=== PATIENT | male | born 1955 | race Caucasian/White ===

== ENCOUNTER 2019-01-05 08:18 | Day surgery (SDC) | payer OTHER ==
[~2019-01-05] VITALS: Ht 182.9 cm; Wt 83.9 kg
[~2019-01-05 08:18] MED LIST: ACETAMINOPHEN 325 MG TAB PO PRN; BALANCED SALT IRRIGATION SOLUTION 500ML BAG (FOR OR EYE MACHINE) As Ordered ONE; CEFUROXIME 1MG/0.1ML INTRACAMERAL INJ As Ordered ONE; CYCLOPENTOLATE 2% OPHTH SOLN 2ML BTL OS ONE; HEALON DUET PRO(HEALON 10MG/ML 0.55ML & HEALON ENDOCOAT 30MG/ML 0.85ML) As Ordered ONE; LIDOCAINE 1% SDV 5 ML VIAL As Ordered ONE; LIDOCAINE 3.5 % 1ML OPHTH TOPICAL GEL OU ONE; MOBI4TAB PO; OFLOXACIN 0.3 % (OCUFLOX) OPTH SOL 5ML OS ONE; PHENYLEPHRINE 2.5% OPHTH SOL 2ML OS ONE; PHENYLEPHRINE HCL 10 % OPHTH. SOL 5ML OS PRN; POVIDONE-IODINE 5% OPHTH PREP SOL 30ML As Ordered ONE; PRED5TA PO; PROPARACAINE 0.5% OPHTH SOL 15ML OS PRN; SLF 3 ML SYR IV PRN; SLF 3 ML SYR IV SCH; TROPICAMIDE 1% OPHTH SOLN 2ML OS ONE
[2019-01-05] MEDS ORDERED: MIDAZOLAM INJ 2 MG/2 ML VIAL (J2250) As Ordered ONE (09:48)
[2019-01-05] MEDS ORDERED: fentaNYL 100 MCG/2 ML INJECTION (J3010) As Ordered ONE (09:48)
[2019-01-05] MEDS ORDERED: TRYPAN BLUE 0.06 % 2.25 ML OPHTH SYR (VISIONBLUE) As Ordered ONE (11:11)
[2019-01-05] MEDS ORDERED: HEALON DUET PRO(HEALON 10MG/ML 0.55ML & HEALON ENDOCOAT 30MG/ML 0.85ML) As Ordered ONE (11:21)
[2019-01-05] MEDS ORDERED: ACETYLCHOLINE OPHTH SOLN 1% 2ML (MIOCHOL-E) As Ordered ONE (11:31)
[2019-01-05] MEDS ORDERED: TOBRADEX OPHTH OINT 3.5 GM As Ordered ONE (11:38)
[2019-01-05] MEDS ORDERED: ONDANSETRON 4MG/2ML VIAL (J2405) IV PRN (12:00)
[2019-01-05] MEDS ORDERED: TRIMETHOBENZAMIDE 300 MG CAP PO PRN (12:15)
[2019-01-05] MEDS ORDERED: KETOROLAC 0.5% OPHTH SOLN OS ONE (12:15)
[2019-01-05] MEDS ORDERED: AcetaZOLAMIDE 500 MG ER CAP PO ONE (12:15)
[2019-01-05 12:20] VITALS: BP 120/56
--- NOTE | 2019-01-06 08:58 | RO ---
DATE OF PROCEDURE: 01/05/2019 PREPROCEDURE DIAGNOSIS: Extremely dense nuclear cataract, left eye. POSTPROCEDURE DIAGNOSIS: Extremely dense nuclear cataract, left eye. PROCEDURE: Phacoemulsification without intraocular lens implantation. SURGEON: Dr. Christine Driscoll. FABRICATION TECHNICIAN: ANESTHESIA: Topical with sedation. DESCRIPTION OF PROCEDURE: The patient was prepped and draped in the usual fashion. A lid speculum was placed. The eye was fixated. A stab incision was made into the anterior chamber. 1% nonpreserved lidocaine was instilled, and viscoelastic was instilled. It was determined that the lens was extremely dens and we were not able to visualize the capsule well. The capsule was stained with vision blue and then fresh Healon was instilled. A Cystotome was used to begin a capsulorrhexis. Capsulorrhexis was carried out in circular fashion with capsulorrhexis forceps. Lens was hydrodissected. It was extremely dense lens. Phacoemulsification was begun and we had to increase the power to almost 90% on the dense setting to be able to emulsify the lens. The lens was finally, totally removed with the phacoemulsification. However, the posterior capsule had a rent in it. At this point, there is some damage to the iris from the phacoemulsification. Anterior vitrectomy was done and then Miochol was instilled. It was elected to wait to put an implant in. We will either glue or sew in an intraocular lens at a later date. One suture was placed in the wound. Cefuroxime was instilled and there was no vitreous at the wound at this point. TobraDex ointment was applied and patch and shield were placed. Patient tolerated procedure well and went to recovery room in stable condition.
== END 2019-01-05 12:35 | disposition home or self-care (01) ==
LOC: M SDC 08:18
PROVIDERS: ATTEND Ophthalmology
DX: H25.12 Age-related nuclear cataract, left eye (principal); M35.3 Polymyalgia rheumatica; Z79.52 Long term (current) use of systemic steroids
CPT/HCPCS: 66984; 92015; J2250; J3010

== ENCOUNTER 2019-05-16 07:38 | Day surgery (SDC) | payer OTHER ==
[~2019-05-16] VITALS: Ht 182.9 cm; Wt 85.2 kg
[~2019-05-16 07:38] MED LIST changes: -CEFUROXIME 1MG/0.1ML INTRACAMERAL INJ As Ordered ONE; +MIDAZOLAM INJ 2 MG/2 ML VIAL (J2250) As Ordered ONE; -SLF 3 ML SYR IV PRN; -SLF 3 ML SYR IV SCH; +fentaNYL 100 MCG/2 ML INJECTION (J3010) As Ordered ONE
[2019-05-16] MEDS ORDERED: CEFUROXIME 1MG/0.1ML INTRACAMERAL INJ As Ordered ONE (10:15)
[2019-05-16] MEDS ORDERED: AcetaZOLAMIDE 500 MG ER CAP As Ordered ONE (11:12)
[2019-05-16 11:35] VITALS: BP 133/83
[2019-05-16] MEDS ORDERED: KETOROLAC 0.5% OPHTH SOLN OS ONE (12:15)
[2019-05-16] MEDS ORDERED: AcetaZOLAMIDE 500 MG ER CAP PO ONE (12:15)
[2019-05-16] MEDS ORDERED: TRIMETHOBENZAMIDE 300 MG CAP PO PRN (12:15)
--- NOTE | 2019-05-17 07:32 | RO ---
DATE OF PROCEDURE: 05/16/2019 PREOPERATIVE DIAGNOSIS: Aphakia left eye. POSTOPERATIVE DIAGNOSIS: Aphakia left eye. PROCEDURE PERFORMED: Implantation of secondary IOL. SURGEON: Christine Driscoll MD QUALITY DIRECTOR: ANESTHESIA: Topical sedation. LENS USED: [employer] LI61AO 19.0 diopters. DESCRIPTION OF PROCEDURE: The patient was examined. There was enough capsule shelf to put a lens in the sulcus. The eye was fixated, stab incision made into the anterior chamber. 1% nonpreserved lidocaine was instilled and then viscoelastic was instilled. A 2.5 mm keratome was used to make a clear corneal temporal limbal incision. This was increased to approximately 2.65 mm. The LI61AO was placed into its ward supervisor and ward supervisor was placed into the eye and the lens was injected into the eye. First the distal haptic was properly placed and then the half was placed with the forceps. The Viscoelastic was irrigated out and a suture was placed. Cefuroxime was instilled. The patient tolerated procedure well and went to recovery room in stable condition.
== END 2019-05-16 11:45 | disposition home or self-care (01) ==
LOC: M SDC 07:38
PROVIDERS: ATTEND Ophthalmology
DX: H27.02 Aphakia, left eye (principal); M35.3 Polymyalgia rheumatica; R06.83 Snoring; Z79.52 Long term (current) use of systemic steroids; Z87.442 Personal history of urinary calculi; Z98.41 Cataract extraction status, right eye; Z96.1 Presence of intraocular lens; Z79.899 Other long term (current) drug therapy
CPT/HCPCS: 66985; J2250; J3010